=== PATIENT | female | born 2000 | race Caucasian/White ===

== ENCOUNTER 2018-06-22 13:18 | Observation (INO) | payer OTHER ==
[~2018-06-22] VITALS: Ht 167.6 cm; Wt 57.6 kg
[~2018-06-22 13:18] MED LIST: MESA10007 RC; ONDA4TAB97 PO; OXYC-865 PO; PRED20TA6 PO; SERT-1 PO
--- NOTE | 2018-06-22 13:29 | ER Report ---
History and Physical Time Seen By MD: 13:29 Hx. of Stated Complaint: Pt. says her throat is very swollen. Hendricks and Strep test both negative at urgent care. Low grade temp. Illness started yesterday morning, but has became progressively worse. Painful to eat and drink anything. HPI/ROS CHIEF COMPLAINT: Swelling of throat, pain HISTORY OF PRESENT ILLNESS: 18-year-old female patient presents to emergency room with complaint of swelling of throat and pain. Patient states she started not feeling well yesterday morning when she woke up. She states that she has not been able to eat since last night. Patient states she is trying to drink, however she's only managed drink a small amount of water. She states that she fe lt hot and cold last night but did not check her temperature. She denies any nausea, vomiting or diarrhea. She did go to the urgent care and was evaluated there. She was encouraged to do IV antibiotics and steroids. At that time she felt that she would prefer to come here to the emergency room for evaluation. Patient denies having any shortness of breath or difficulty breathing. REVIEW OF SYSTEMS: Respiratory: No cough, no dyspnea. Cardiovascular: No chest pain, no palpitations. Gastrointestinal: No vomiting, no abdominal pain. Musculoskeletal: No back pain. Allergies: Coded Allergies: nitrofurantoin (Verified Allergy, Severe, ANAPHYLAXIS, 06/22/18) Home Meds Discontinued Reported Medications Amoxicillin/Potassium Clav (AUGMENTIN 500-125 TABLET) 1 Each Tablet, 2 TAB PO Q12H for 7 Days, TAB 06/22/18 Mesalamine (CANASA) 1,000 Mg Supp.rect, 1000 MG RC BID, SUPP.RECT 06/30/17 Ondansetron Hcl (ZOFRAN) 4 Mg Tablet, 4 MG PO Q12H PRN for NAUSEA, TAB 06/30/17 Sertraline Hcl (ZOLOFT) 50 Mg Tablet, 1 TAB PO QDAY, TAB 06/30/17 Discontinued Scripts Prednisone (PREDNISONE) 20 Mg Tablet, 20 MG PO BID, #10 TAB Prov:ERIN LORENZ 06/30/17 Oxycodone Hcl/Acetaminophen (PERCOCET 5-325 MG TABLET) 1 Each Tablet, 1 EACH PO Q4-6H PRN for PAIN, #8 TAB Prov:ERIN LORENZ 06/30/17 Past Medical/Surgical History Patient has a past medical history of migraines, ulcerative colitis. Patient has surgical history of colonoscopy 3. Reviewed Nurses Notes: Yes Hx Substance Use Disorder: No Hx Alcohol Use: No Constitutional Vital Sign - Last 24 Hours 06/22/18 06/22/18 06/22/18 06/22/18 13:21 13:22 13:48 14:00 Temp 99.2 Pulse 113 102 Resp 16 B/P (MAP) 99/65 99/65 (76) 91/53 (66) Pulse Ox 95 96 O2 Delivery Room Air Room Air 06/22/18 06/22/18 06/22/18 06/22/18 14:18 14:22 14:23 14:37 Temp 99.0 98.8 Pulse 115 Pulse Ox 94 97 O2 Delivery Room Air 06/22/18 06/22/18 15:11 15:23 Pulse 104 B/P (MAP) 93/60 (71) Pulse Ox 94 Physical Exam General Appearance: The patient is alert, has no immediate need for airway protection and no current signs of toxicity. ENT: Tympanic membranes are pearly-ornelas, auditory canals are patent, mucus mucous membranes are moist. Patient does have significantly enlarged tonsils, 3+. Patient also has cervical lymphadenopathy most notable on the left side. Respiratory: Chest is non tender, lungs are clear to auscultation. Cardiac: regular rate and rhythm Gastrointestinal: Abdomen is soft and non tender, no masses, bowel sounds normal. Musculoskeletal: Neck: Neck is supple and non tender. Extremities have full range of motion and are non tender. Skin: No rashes or lesions. DIFFERENTIAL DIAGNOSIS: After history and physical exam differential diagnosis was considered for pharyngitis, mono, peritonsillar abscess, tonsillitis. Medical Decision Making Data Points Result Diagram: 06/22/18 1330 06/22/18 1330 Laboratory Hematology Test 06/22/18 00:00 06/22/18 13:30 Human Chorionic Gonadotropin, Qual Negative (NEGATIVE) Red Blood Count 5.08 M/uL (4.17-5.56) Mean Corpuscular Volume 88.4 fL (80.0-96.0) Mean Corpuscular Hemoglobin 30.3 pg (26.0-33.0) Mean Corpuscular Hemoglobin Concent 34.2 g/dL (32.0-36.0) Red Cell Distribution Width 12.6 % (11.5-14.5) Mean Platelet Volume 7.6 fL (7.2-11.1) Neutrophils (%) (Auto) 85.7 % (39.4-72.5) Lymphocytes (%) (Auto) 6.3 % (17.6-49.6) Monocytes (%) (Auto) 7.7 % (4.1-12.4) Eosinophils (%) (Auto) 0.2 % (0.4-6.7) Basophils (%) (Auto) 0.1 % (0.3-1.4) Nucleated RBC Relative Count (auto) 0.1 /100WBC Neutrophils # (Auto) 16.4 K/uL (2.0-7.4) Lymphocytes # (Auto) 1.2 K/uL (1.3-3.6) Monocytes # (Auto) 1.5 K/uL (0.3-1.0) Eosinophils # (Auto) 0.0 K/uL (0.0-0.5) Basophils # (Auto) 0.0 K/uL (0.0-0.1) Nucleated RBC Absolute Count (auto) 0.01 K/uL Erythrocyte Sedimentation Rate 6 mm/HOUR (0-20) Sodium Level 137 mmol/L (137-145) Potassium Level 4.0 mmol/L (3.5-5.0) Chloride Level 102 mmol/L (98-107) Carbon Dioxide Level 26 mmol/L (22-31) Blood Urea Nitrogen 12 mg/dl (7-18) Creatinine 0.70 mg/dl (0.52-1.04) Glomerular Filtration Rate Calc > 60.0 Random Glucose 95 mg/dl (75-110) Calcium Level 9.3 mg/dl (8.4-10.2) Total Bilirubin 0.8 mg/dl (0.2-1.3) Aspartate Amino Transf (AST/SGOT) 14 U/L (0-35) Alanine Aminotransferase (ALT/SGPT) 21 U/L (0-56) Alkaline Phosphatase 75 U/L (0-126) C-Reactive Protein 4.0 mg/dl (<1.0) Total Protein 7.6 g/dl (6.3-8.2) Albumin 4.3 g/dl (3.5-5.0) Monoscreen Negative (NEGATIVE) Chemistry Test 06/22/18 00:00 06/22/18 13:30 Human Chorionic Gonadotropin, Qual Negative (NEGATIVE) White Blood Count 19.1 k/uL (4.5-11.0) Red Blood Count 5.08 M/uL (4.17-5.56) Hemoglobin 15.4 g/dL (12.0-16.0) Hematocrit 45.0 % (34.0-47.0) Mean Corpuscular Volume 88.4 fL (80.0-96.0) Mean Corpuscular Hemoglobin 30.3 pg (26.0-33.0) Mean Corpuscular Hemoglobin Concent 34.2 g/dL (32.0-36.0) Red Cell Distribution Width 12.6 % (11.5-14.5) Platelet Count 279 K/uL (150-450) Mean Platelet Volume 7.6 fL (7.2-11.1) Neutrophils (%) (Auto) 85.7 % (39.4-72.5) Lymphocytes (%) (Auto) 6.3 % (17.6-49.6) Monocytes (%) (Auto) 7.7 % (4.1-12.4) Eosinophils (%) (Auto) 0.2 % (0.4-6.7) Basophils (%) (Auto) 0.1 % (0.3-1.4) Nucleated RBC Relative Count (auto) 0.1 /100WBC Neutrophils # (Auto) 16.4 K/uL (2.0-7.4) Lymphocytes # (Auto) 1.2 K/uL (1.3-3.6) Monocytes # (Auto) 1.5 K/uL (0.3-1.0) Eosinophils # (Auto) 0.0 K/uL (0.0-0.5) Basophils # (Auto) 0.0 K/uL (0.0-0.1) Nucleated RBC Absolute Count (auto) 0.01 K/uL Erythrocyte Sedimentation Rate 6 mm/HOUR (0-20) Glomerular Filtration Rate Calc > 60.0 Calcium Level 9.3 mg/dl (8.4-10.2) Total Bilirubin 0.8 mg/dl (0.2-1.3) Aspartate Amino Transf (AST/SGOT) 14 U/L (0-35) Alanine Aminotransferase (ALT/SGPT) 21 U/L (0-56) Alkaline Phosphatase 75 U/L (0-126) C-Reactive Protein 4.0 mg/dl (<1.0) Total Protein 7.6 g/dl (6.3-8.2) Albumin 4.3 g/dl (3.5-5.0) Monoscreen Negative (NEGATIVE) EKG/Imaging Imaging Examination: NECK SOFT TISSUE W CONTRAST Comparison: None. History: throat pain, difficulty swallowing Procedure: Multiplanar contrast enhanced soft tissue neck CT with 75 mL intravenous Isovue 370. One of the following dose optimization techniques was utilized in the p erformance of this exam: Automated exposure control; adjustment of the mA and/or kV according to the patient's size; or use of an iterative reconstruction technique. Specific details can be referenced in the facility's radiology CT exam operational policy. Findings: Left more so than right tonsillar enlargement. The tonsils are mildly heterogeneous likely with mild enhancement of the mucosa but no tonsillar fluid collection is identified. The parapharyngeal space fat is symmetric and within normal limits with no evidence of peritonsillar inflammation. No prevertebral soft tissue edema. There are a few prominent cervical lymph nodes which are likely reactive. Major cervical vessels are patent. Salivary glands are unremarkable. No epiglottis thickening. Laryngeal tissues are unremarkable. Thyroid is unremarkable. Visualized brain is within normal limits. Orbital contents are unremarkable. Visualized paranasal sinuses and mastoid air cells are clear. Cervical spine is unremarkable. Visualized upper chest is unremarkable. IMPRESSION: Tonsillitis with no evidence of tonsillar/peritonsillar abscess. Results were discussed with ERIN LORENZ at 06/22/2018 3:11 PM. Report Dictated By: Andrea Mclain MD at 06/22/2018 3:06 PM Report E-Signed By: Andrea Mclain MD at 06/22/2018 3:12 PM ED Course/Re-evaluation ED Course Patient was admitted to an exam room, history and physical were obtained. Differential diagnoses work and severe. On examination lungs are clear, heart is regular although tachycardia, abdomen is soft nontender. Patient does have cervical lymphadenopathy on the left side, however the left lymph node was larger. The tonsils bilaterally were enlarged. We did give the patient a dose of clindamycin, 600 mg, Solu-Medrol and 25 mg. On reevaluation patient states she still having significant amounts of pain didn't feel like she could swallow and was not able to swallow her own saliva. As result that we did go ahead and do a CT scan of the soft tissues of the neck to make sure there is not any abscess which could be making things worse. That was done and was negative for abscess, did show inflammation around the tonsils. I discussed with the patient felt she was able to take oral medicine. She states that she is not able to do that and so we will go ahead and admit the patient to the hospital. I discussed the case with Dr. Browne, hospitalist, who agreed to accept the patient for admission. I discussed this with the patient and she verbalized understanding and agreement with plan. Decision to Disposition Date: Jun 22, 2018 Decision to Disposition Time: 15:24 Depart Departure Latest Vital Signs Vital Signs Date Time Temp Pulse Resp B/P (MAP) Pulse Ox O2 Delivery O2 Flow Rate FiO2 06/22/18 15:23 104 94 06/22/18 15:11 93/60 (71) 06/22/18 14:37 98.8 06/22/18 14:18 Room Air 06/22/18 13:21 16 Impression: Primary Impression: Tonsillitis Condition: Condition Unchanged Disposition: Admitted from ER ERIN LORENZ Jun 22, 2018 13:29
[2018-06-22] MEDS ORDERED: AMOX-556 PO (13:30)
[2018-06-22] MEDS ORDERED: cefTRIAXone(*) 1 GM VIAL 1 GM in NS(*) 0.9% 100 ML ADDVANT BAG 100 ML IVPB ONE (13:35)
[2018-06-22] MEDS ORDERED: methylPREDNIS SUCC 125 MG/2ML IVP ONE (13:35)
[2018-06-22] MEDS ORDERED: NS(*) 0.9% 1000 ML BAG 1,000 ML IV ONE (13:35)
[2018-06-22] MEDS ORDERED: CLINDAMYCIN 600 MG/4 ML 600 MG in NS(*) 0.9% 100 ML BAG 100 ML IVPB ONE (13:40)
[2018-06-22 13:44] LABS: PLATELET COUNT, AUTOMATED 279 K/uL (150-450)
[2018-06-22] MEDS ORDERED: CLINDAMYCIN(*) 600 MG/NS 50 ML 50 ML IVPB ONE (13:45)
[2018-06-22] MEDS ORDERED: LIDOCAINE 2% VISC SLN 15ML UDC PO ONE (14:10)
[2018-06-22] MEDS ORDERED: IOPAMIDOL 76% 75 ML INFUS BTL 75 ML ONE (14:45)
--- NOTE | 2018-06-22 15:16 | RADIOLOGY IMAGING REPORT ---
FACILITY: [facility] - [place] PATIENT NAME: Natty John : 2000 MR: [id number] V: [id number] EXAM DATE: ORDERING PHYSICIAN: ERIN LORENZ TECHNOLOGIST: Location: [facility] - [place] Patient: Natty John : 2000 Visit/Account:[id number] Date of Sevice: 06/22/2018 Examination: NECK SOFT TISSUE W CONTRAST Comparison: None. History: throat pain, difficulty swallowing Procedure: Multiplanar contrast enhanced soft tissue neck CT with 75 mL intravenous Isovue 370. One of the following dose optimization techniques was utilized in the performance of this exam: Autom ated exposure control; adjustment of the mA and/or kV according to the patient's size; or use of an i terative reconstruction technique. Specific details can be referenced in the facility's radiology C T exam operational policy. Findings: Left more so than right tonsillar enlargement. The tonsils are mildly heterogeneous likely with mild enhancement of the mucosa but no tonsillar fluid collection is identified. The parapharynge al space fat is symmetric and within normal limits with no evidence of peritonsillar inflammation. No prevertebral soft tissue edema. There are a few prominent cervical lymph nodes which are likely reactive. Major cervical vessels are patent. Salivary glands are unremarkable. No epiglottis thickening. Laryngeal tissues are unremarkabl e. Thyroid is unremarkable. Visualized brain is within normal limits. Orbital contents are unremarkable. Visualized paranasal sin uses and mastoid air cells are clear. Cervical spine is unremarkable. Visualized upper chest is unrem arkable. IMPRESSION: Tonsillitis with no evidence of tonsillar/peritonsillar abscess. Results were discussed with ERIN LORENZ at 06/22/2018 3:11 PM. Report Dictated By: Andrea Mclain MD at 06/22/2018 3:06 PM Report E-Signed By: Andrea Mclain MD at 06/22/2018 3:12 PM WSN:[id number]
[2018-06-22 15:59] VITALS: BP 106/67
[2018-06-22] MEDS ORDERED: NS(*) 0.9% 1000 ML BAG 1,000 ML IV PRN (16:02)
[2018-06-22] MEDS ORDERED: ONDANSETRON 4 MG/2 ML VIAL IVP PRN (16:05)
[2018-06-22] MEDS ORDERED: FLUSH 10 ML SYR IVP PRN (16:05)
[2018-06-22] MEDS ORDERED: ACETAMINOPHEN 325 MG TAB PO PRN (16:05)
[2018-06-22] MEDS ORDERED: ACETAMINOPHEN(*)1000 MG/100 ML 100 ML IVPB PRN (16:05)
[2018-06-22] MEDS ORDERED: KETOROLAC 30 MG/ML VIAL IVP PRN (16:05)
[2018-06-22] MEDS ORDERED: CLINDAMYCIN 600 MG/4 ML 600 MG in NS(*) 0.9% 100 ML BAG 100 ML IVPB SCH (17:00)
[2018-06-22 18:35] VITALS: BP 96/60
--- NOTE | 2018-06-22 19:49 | History & Physical ---
History of Present Illness Chief Complaint sore throat History of Present Illness 18F presented to [facility] ER after being seen at urgent care for sore throat of 2 days duration. Denies cough, reports chills, subjective fever. Reports unable to take PO well, some difficulty swallowing secretions. CT scan shows tonsillitis without abscess. Tonsils enlarged erythema, no exudate. PMHx significant for UC for which she is prescribed mesalamine suppository but does not use. Otherwise generally healthy. History Problems: (1) Ulcerative colitis Status: Chronic Home Meds Discontinued Reported Medications Amoxicillin/Potassium Clav (AUGMENTIN 500-125 TABLET) 1 Each Tablet, 2 TAB PO Q12H for 7 Days, TAB 06/22/18 Mesalamine (CANASA) 1,000 Mg Supp.rect, 1000 MG RC BID, SUPP.RECT 06/30/17 Ondansetron Hcl (ZOFRAN) 4 Mg Tablet, 4 MG PO Q12H PRN for NAUSEA, TAB 06/30/17 Sertraline Hcl (ZOLOFT) 50 Mg Tablet, 1 TAB PO QDAY, TAB 06/30/17 Discontinued Scripts Prednisone (PREDNISONE) 20 Mg Tablet, 20 MG PO BID, #10 TAB Prov:GERDAERIN [facility] 06/30/17 Oxycodone Hcl/Acetaminophen (PERCOCET 5-325 MG TABLET) 1 Each Tablet, 1 EACH PO Q4-6H PRN for PAIN, #8 TAB Prov:GERDACLARITZAE [facility] 06/30/17 Allergies: Coded Allergies: nitrofurantoin (Verified Allergy, Severe, ANAPHYLAXIS, 06/22/18) Patient History: FH: Crohn's disease MOTHER Hx Smoking: No (E-cigarette 1 month ago) Smoking Status: Former Smoker Caffeine Intake: Tea, Soda Hx Alcohol Use: Yes Hx Substance Use Disorder: No Social Drug Use: Former Social Drugs: Marijuana Review of Systems All Systems Reviewed/Normal: Yes, Except as Noted Constitutional: Fever ENT: Sore Throat; No Tinnitus Exam Vital Signs Vital Signs Date Time Temp Pulse Resp B/P (MAP) Pulse Ox O2 Delivery O2 Flow Rate FiO2 06/22/18 18:35 98.1 83 18 96/60 (72) 94 Room Air General Appearance: Alert, Awake, No Acute Distress Neuro: No Gross deficits Eyes: PERRLA ENT: Other (3+ tonsils, erythema, no exudate) Neck: Other (+ LAD) Cardiovascular: Normal Rhythm & Peripheral Pulses Respiratory: No Respiratory Distress GI: Abd Soft and Non-Tender Musculoskeletal: No Weakness/Pain Extremities: Soft and Non Tender, Warm, Pulses, Perfused; No Edema Integumentary: Skin Intact without Lesion / Mass Psych: Alert & Oriented X3 Medical Decision Making Data Points Result Diagram: 06/22/18 1330 06/22/18 1330 EKG / Imaging Imaging IMPRESSION: Tonsillitis with no evidence of tonsillar/peritonsillar abscess. Assessment and Plan Problems: (1) Tonsillitis Status: Acute Assessment & Plan: Begin IV clindamycin, IV steroid. Pain control IV Toradol. Anticipate if taking sufficient PO in am could d/c to complete 14 days clindamycin. Throat Cx pending, rapid strep and monospot negative. (2) Ulcerative colitis Status: Chronic Assessment & Plan: Non-adherent to mesalamine therapy. Venous Thromboembolism Antithrombotics Is Pt On Any Antithrombotics?: No (early ambulation.) Exam Sepsis Risk: Sepsis Risk TOYA GOMEZ DO Jun 22, 2018 19:48
[2018-06-22] MEDS: methylPREDNIS SUCC 125 MG/2ML IVP SCH (20:40)
[2018-06-22] MEDS: CLINDAMYCIN(*) 600 MG/NS 50 ML 50 ML IVPB SCH (21:50)
[2018-06-22 23:06] VITALS: BP 96/60
[2018-06-23 03:27] VITALS: BP 90/62
[2018-06-23 05:45] LABS: PLATELET COUNT, AUTOMATED 247 K/uL (150-450)
[2018-06-23] MEDS: CLINDAMYCIN(*) 600 MG/NS 50 ML 50 ML IVPB SCH ×2 (06:01→12:45)
[2018-06-23 08:03] VITALS: BP 87/44
[2018-06-23] MEDS: methylPREDNIS SUCC 125 MG/2ML IVP SCH (08:22)
[2018-06-23] MEDS ORDERED: CLIN300C99 PO (11:47)
[2018-06-23] MEDS ORDERED: PRED-1 PO (11:47)
--- NOTE | 2018-06-23 11:55 | Hospitalist Depart ---
Discharge Summary Reason for Hosp/Final Diag: (1) Tonsillitis Status: Acute Hospital Course & Plan: She presented with 2 days of sore throat and then 1 day of inability to swallow. CT scan showed tonsillitis without abscess. She was given IV steroids and IV clindamycin and is doing much better this morning. Her tonsils are enlarged and erythematous, but are symmetric and without any uvular deviation or swelling. She can eat and drink without problems. She will go home on 4 day taper of prednisone and 14 days total of clindamycin. (2) Ulcerative colitis Status: Chronic Hospital Course & Plan: Non-adherent to mesalamine therapy. Departure Weight (Pounds): 127 Result Diagram: 06/23/18 0530 06/23/18 0530 Item Value Date Time White Blood Count 19.1 k/uL H 06/22/18 1330 White Blood Count 18.0 k/uL H 06/23/18 0530 Hemoglobin 15.4 g/dL 06/22/18 1330 Hemoglobin 14.1 g/dL 06/23/18 0530 Neutrophils (%) (Auto) 85.7 % H 06/22/18 1330 Neutrophils (%) (Auto) 92.2 % H 06/23/18 0530 Erythrocyte Sedimentation Rate 6 mm/HOUR 06/22/18 1330 Human Chorionic Gonadotropin, Qual Negative 06/22/18 0000 Calcium Level 9.3 mg/dl 06/22/18 1330 Total Bilirubin 0.8 mg/dl 06/22/18 1330 Aspartate Amino Transf (AST/SGOT) 14 U/L 06/22/18 1330 Alanine Aminotransferase (ALT/SGPT) 21 U/L 06/22/18 1330 Alkaline Phosphatase 75 U/L 06/22/18 1330 Blood Urea Nitrogen 12 mg/dl 06/22/18 1330 Creatinine 0.70 mg/dl 06/22/18 1330 Blood Urea Nitrogen 14 mg/dl 06/23/18 0530 Creatinine 0.60 mg/dl 06/23/18 0530 Monoscreen Negative 06/22/18 1330 Imaging 06/22/[address] - Tonsillitis with no evidence of tonsillar/peritonsillar abscess. Condition: Improved Discharge: Home Discharge Instructions Home Meds Active Scripts Prednisone 10 Mg Tab (PREDNISONE 10 MG TAB) 10 Mg Tablet, 10-40 MG PO QDAY, #10 TAB 4 pills for 1 day, 3 pills for 1 day, 2 pills for 1 day and then 1 pill for 1 day Prov:RADHA RUIZ MD 06/23/18 Clindamycin Hcl (CLINDAMYCIN HCL) 300 Mg Capsule, 300 MG PO Q6H, #50 CAPSULE Prov:RADHA RUIZ MD 06/23/18 Discontinued Reported Medications Amoxicillin/Potassium Clav (AUGMENTIN 500-125 TABLET) 1 Each Tablet, 2 TAB PO Q12H for 7 Days, TAB 06/22/18 Mesalamine (CANASA) 1,000 Mg Supp.rect, 1000 MG RC BID, SUPP.RECT 06/30/17 Ondansetron Hcl (ZOFRAN) 4 Mg Tablet, 4 MG PO Q12H PRN for NAUSEA, TAB 06/30/17 Sertraline Hcl (ZOLOFT) 50 Mg Tablet, 1 TAB PO QDAY, TAB 06/30/17 Discontinued Scripts Prednisone (PREDNISONE) 20 Mg Tablet, 20 MG PO BID, #10 TAB Prov:ERIN LORENZ 06/30/17 Oxycodone Hcl/Acetaminophen (PERCOCET 5-325 MG TABLET) 1 Each Tablet, 1 EACH PO Q4-6H PRN for PAIN, #8 TAB Prov:ERIN LORENZ 06/30/17 Diet: Regular Activity: As Tolerated Special Instructions: Go to the ER for worsening difficulty with swallowing or sensation of throat swelling more. Venous Thromboembolism Antithrombotics Is Pt On Any Antithrombotics?: No (early ambulation.) RADHA RUIZ MD Jun 23, 2018 11:55
[2018-06-23] MEDS ORDERED: predniSONE 20 MG TAB PO ONE (12:12)
[2018-06-24] MEDS ORDERED: INFLUENZA VIRUS VAC 0.5ML SYR IM ONLY ONE (09:00)
== END 2018-06-23 11:55 | disposition home or self-care (01) ==
LOC: ER 13:25 → INTOOBSV 15:28 → MED 15:28
PROVIDERS: ADMIT Internal Medicine; ATTEND Internal Medicine
DX: J03.90 Acute tonsillitis, unspecified (principal); R00.0 Tachycardia, unspecified; K51.90 Ulcerative colitis, unspecified, without complications; Z88.8 Allergy status to other drugs, medicaments and biological substances; R13.10 Dysphagia, unspecified
CPT/HCPCS: 36415; 70491; 84703; 85025; 85651; 86140; 86308; 87070; 99284; G0378; J0131; J1885; J2930; J3490; J7030; J7512; Q9967; 82040; 82247; 82310; 82374; 82435; 82565; 82947; 84075; 84132; 84155; 84295; 84450; 84460; 84520; 96361; 96365; 96375